=== PATIENT | male | born 2000 | race African-American/Black ===

== ENCOUNTER 2022-05-03 17:36 | Emergency (ER) | payer OTHER, MEDICAID ==
[~2022-05-03] VITALS: Ht 182.9 cm; Wt 65.1 kg
[~2022-05-03 17:36] MED LIST: [UNRECOGNIZED DRUG - CODE]
[2022-05-03 18:50] LABS: Basophils # (auto) 0.1 10 ^3/uL (0-0.2); Basophils % (auto) 0.7 % (0.0-2.0); Eosinophils # (auto) 0 10 ^3/uL (0-0.8); Eosinophils % (auto) 0.1 % (0.0-7.0); Hemoglobin 12.8 g/dL (13.5-17.5); Lymphocytes # (auto) 1.7 10 ^3/uL (0.4-5.4); Lymphocytes % (auto) 9.8 % (10.0-50.0); Mean Corpuscular Hemoglobin 34.7 pg (28.0-32.0); Mean Corpuscular Hgb Conc. 34.7 g/dL (32.0-36.0); Mean Corpuscular Volume 100.1 fL (80.0-100.0); Monocytes # (auto) 1.4 10 ^3/uL (0-1.3); Monocytes % (auto) 8.3 % (0.0-12.0); Neutrophils # (auto) 14.1 10 ^3/uL (1.6-8.6); Neutrophils % (auto) 81.1 % (37.0-80.0); Nucleated Red Blood Cells % 0.7 %; Red Cell Distribution Width 14.9 % (11.8-14.3); White Blood Cell 17.4 10^3/uL (4.4-10.8)
[2022-05-03 19:06] LABS: Albumin 5.2 g/dL (3.4-5.0); Potassium 3.4 mmol/L (3.5-5.1)
[2022-05-03 19:08] LABS: BUN/Creatinine Ratio 9.6
[2022-05-03 19:12] LABS: Bilirubin, Total 8.4 mg/dL (0.2-1.0); Total Protein 8.8 g/dL (6.4-8.2)
[2022-05-03] MEDS ORDERED: MORPHINE SULFATE 4 MG/ML SYR/VIAL IV ONE ×2 (20:15→21:00)
[2022-05-03] MEDS ORDERED: ONDANSETRON HCL 4 MG/2 ML VIAL IV ONE (20:15)
[2022-05-03] MEDS ORDERED: SODIUM CHLORIDE 0.9% 1,000 ML IV ONE ×2 (20:15→21:00)
[2022-05-03 20:58] LABS: Magnesium 2.2 mg/dL (1.6-2.6)
[2022-05-03] MEDS ORDERED: cefTRIAXone 1GM/50ML D5W 50 ML IV ONE (21:00)
[2022-05-03] MEDS ORDERED: AZITHROMYCIN 250 MG TAB PO ONE (21:00)
[2022-05-03] MEDS ORDERED: metroNIDAZOLE 500MG/100ML 100 ML IV ONE (21:15)
[2022-05-04] MEDS ORDERED: MORPHINE SULFATE 4 MG/ML SYR/VIAL IV ONE (03:30)
[2022-05-04] MEDS ORDERED: ONDANSETRON HCL 4 MG/2 ML VIAL IV ONE (03:30)
[2022-05-04 04:02] VITALS: BP 110/54
== END 2022-05-04 04:38 | disposition short-term general hospital (02) ==
LOC: ER 17:36
DX: D57.00 Hb-SS disease with crisis, unspecified (principal); K80.10 Calculus of gallbladder with chronic cholecystitis without obstruction; E80.4 Gilbert syndrome
CPT/HCPCS: 36415; 71045; 76705; 80053; 83605; 83735; 83880; 84100; 84484; 85025; 85379; 87040; 93005; 96361; 96365; 96367; 96375; 96376; 99285; J0696; J2270; J2405; J3490; J7030